=== PATIENT | female | born 1990 | race Caucasian/White ===

== ENCOUNTER 2016-12-02 05:28 | Inpatient (IN) | payer BC ==
[~2016-12-02] VITALS: Ht 157.5 cm; Wt 87.7 kg
[2016-12-02] VITALS (38 sets, daily range): BP systolic 110–166; BP diastolic 59–101; PULSE 88–136; TEMP 97.5–98
[2016-12-02] MEDS ORDERED: MOTRIN 800800 MG/TAB PO (06:25)
[2016-12-02] MEDS ORDERED: PERCOCET 325 MG1 TA2 PO (06:25)
[2016-12-02] MEDS ORDERED: PRENATAL (06:54)
[2016-12-02 07:43] LABS: BASO % 0.4 % (0.0-2.0); EOS % 0.5 % (0-4.0); GRAN # 5.8 (1.4-6.5); GRAN % 73.8 % (42.2-75.2); HEMOGLOBIN 12.1 g/dl (12.5-16.0); LYMPH # 1.2 (1.2-3.4); LYMPH % 15.6 % (20.0-51.0); MEAN CELL VOLUME 83 fl (80.0-100.0); MEAN CORPUSCULAR HEMOGLOBIN 29 pg (27.0-31.0); MEAN CORPUSCULAR HGB CONC 35 g/dl (33.0-37.0); MEAN PLATELET VOLUME 12.5 fl (7.4-10.4); MONO # 0.7 (0.1-0.6); MONO % 8.9 % (1.7-9.3); PLATELET COUNT 147 K/mm3 (130-400); RED BLOOD COUNT 4.19 M/mm3 (4.10-5.30); REDCELL DISTRIBUTION WIDTH-CV 13.7 % (11.5-14.5); WHITE BLOOD COUNT 7.9 K/mm3 (4.8-10.8)
[2016-12-02 08:00] LABS: PH 6 (5-8); SQUAMOUS EPITHELIAL 0-2 /hpf; URINE APPEARANCE Clear; URINE BACTERIA None Seen /hpf; URINE BILIRUBIN Negative (NEGATIVE); URINE BLOOD 1+ (NEGATIVE); URINE COLOR Yellow; URINE GLUCOSE Negative (NEGATIVE); URINE KETONE Trace (NEGATIVE); URINE RBC 20-50 /hpf; URINE UROBILINOGEN Negative (NEGATIVE)
[2016-12-02 08:07] LABS: HEMATOCRIT 34.9 % (37.0-47.0)
[2016-12-02 08:11] LABS: ALBUMIN 3.4 gm/dL (3.5-5.0); BILIRUBIN,TOTAL 0.5 mg/dL (0.0-1.0); CALCIUM 8.5 mg/dL (8.4-10.2); CREATININE, serum 0.5 mg/dL (0.52-1.25); POTASSIUM 3.5 mmol/L (3.4-5.0); TOTAL PROTEIN 6.7 gm/dL (6.4-8.2)
[2016-12-03 00:07] VITALS: BP 123/71; PULSE 92; TEMP 97.7
[2016-12-03 04:30] VITALS: BP 134/86; PULSE 98; TEMP 97.6
[2016-12-03 08:00] VITALS: BP 129/78; PULSE 113; TEMP 97.9
[2016-12-03 12:00] VITALS: BP 120/74; PULSE 94; TEMP 98.1
[2016-12-03] MEDS ORDERED: PERCOCET 325 MG1 TA2 PO (12:21)
[2016-12-03] MEDS ORDERED: IBU800 M1 PO (12:21)
[2016-12-03 16:00] VITALS: BP 133/87; PULSE 103; TEMP 97.6
[2016-12-03 18:45] VITALS: BP 126/72; PULSE 89; TEMP 97.8
[2016-12-04 08:00] VITALS: BP 128/80; PULSE 82; TEMP 97.7
== END 2016-12-04 14:50 | disposition home or self-care (01) | DRG 775 ==
LOC: LDRO 05:28 → LDR 05:53 → OB 05:53
PROVIDERS: Obstetrics & Gynecology
PROC: 10E0XZZ Delivery of Products of Conception, External Approach (ICD-10-PCS; principal; 2016-12-02)
PROC: 0KQM0ZZ Repair Perineum Muscle, Open Approach (ICD-10-PCS; 2016-12-02)
DX: O35.8XX0 Maternal care for other (suspected) fetal abnormality and damage, not applicable or unspecified (principal); O70.1 Second degree perineal laceration during delivery; Z3A.39 39 weeks gestation of pregnancy; Z37.0 Single live birth
CPT/HCPCS: J2590; J7120

== ENCOUNTER → 2017-02-05 | Outpatient (CLI) | payer BC ==
[~2017-02-05] MED LIST: IBU800 M1 PO; MOTRIN 800800 MG/TAB PO; PERCOCET 325 MG1 TA2 PO; PRENATAL
== END ==
LOC: MC.RAD 14:03
DX: N60.02 Solitary cyst of left breast (principal); N63 Unspecified lump in breast

== ENCOUNTER 2019-06-23 17:39 | Outpatient (CLI) | payer BC ==
[~2019-06-23] VITALS: Ht 157.5 cm; Wt 91.4 kg
--- NOTE | 2019-06-23 17:45 | NUR ---
Pt arrives on unit ambulatory with spouse. States fall directly to abdomen at 1640 while chasing dog and toddler. Denies LOF, vaginal bleeding, regular ctx and reports movement. EFM and toco applied. VSS. Admission assessment complete. Dr. Velazquez notified. See physician notification. Pt updated on POC. Safety reviewed. Oriented to room. Bed locked in low position call light within reach. No questions or concerns at this time.
[2019-06-23] MEDS ORDERED: LEVOXYL0.05 MG PO (17:46)
[2019-06-23 18:25] VITALS: BP 123/85; PULSE 97
--- NOTE | 2019-06-23 18:25 | NUR ---
Watching TV, spouse attentive at bedside. Pt reports generalized "ache" on R side of abdomen, no redness or bruising noted. Denies need for ice or heat to that area at this time.
[2019-06-23 19:00] VITALS: BP 121/78; PULSE 95
[2019-06-23 19:30] VITALS: BP 123/72; PULSE 94
--- NOTE | 2019-06-23 19:45 | NUR ---
Up to bathroom, denies vaginal bleeding or loss of fluid.
[2019-06-23 19:55] VITALS: BP 127/76; PULSE 92
[2019-06-23 20:50] VITALS: BP 127/75; PULSE 93
[2019-06-23 21:45] VITALS: BP 134/86; PULSE 109
--- NOTE | 2019-06-23 22:00 | NUR ---
Discharge instructions reviewed with pt and spouse. Questions invited and answred. Ambulatory off unit.
== END 2019-06-23 22:05 | disposition home or self-care (01) ==
LOC: LDRO 17:39 → LDR 17:48 → LDRO 22:05
DX: O9A.213 Injury, poisoning and certain other consequences of external causes complicating pregnancy, third trimester (principal); Z3A.35 35 weeks gestation of pregnancy
CPT/HCPCS: OP

== ENCOUNTER 2019-06-30 10:04 | Inpatient (IN) | payer BC ==
[~2019-06-30] VITALS: Ht 157.5 cm; Wt 95.7 kg
[~2019-06-30 10:04] MED LIST changes: +LEVOXYL0.05 MG PO
[2019-07-16] VITALS (45 sets, daily range): BP systolic 103–141; BP diastolic 62–98; PULSE 83–123; TEMP 97.7–98.4
--- NOTE | 2019-07-16 07:20 | NUR ---
Pt here for scheduled induction of labor. Pt to room LDR 3 and to EFM. IV started to left hand x 1 attempt. Blood drawn from site and then LR infusing without difficulty. Assessment complete and consents signed. Pt denies any vaginal bleeding, leaking of fluid or contractions. 39.0 weeks gestation and GBS negative. SVE: /-3. 0800:Pitocin started at 2mu.
[2019-07-16 08:54] LABS: BASO % 0.3 % (0.0-2.0); EOS # 0.1 (0.0-0.7); EOS % 1.3 % (0-4.0); GRAN % 71.7 % (42.2-75.2); LYMPH # 1.2 (1.2-3.4); LYMPH % 17.5 % (20.0-51.0); MEAN CELL VOLUME 78 fl (80.0-100.0); MEAN CORPUSCULAR HEMOGLOBIN 26 pg (27.0-31.0); MEAN CORPUSCULAR HGB CONC 33 g/dl (33.0-37.0); MEAN PLATELET VOLUME 12.2 fl (7.4-10.4); MONO # 0.6 (0.1-0.6); MONO % 8.8 % (1.7-9.3); PLATELET COUNT 199 K/mm3 (130-400); RED BLOOD COUNT 4.24 M/mm3 (4.10-5.30); REDCELL DISTRIBUTION WIDTH-CV 14.1 % (11.5-14.5)
--- NOTE | 2019-07-16 10:30 | NUR ---
Dr Velez and at bedside. SVE:3-/-2. AROM per physician, clear fluid noted. Pads changed and pt repositioned. Denies epidural at this time but will notify nurse when she desires one.
--- NOTE | 2019-07-16 11:10 | NUR ---
Pt requesting epidural. Donny EXTENSION COURSE COORDINATOR here and notified. IVF bolus started. 1118:Pt repositioned to sitting up position. Epidural placed, test dose at 1126. Pt tolerated well. See anesthesia notes.
--- NOTE | 2019-07-16 14:55 | NUR ---
Prolonged deceleration noted followed by recurrent variable decelerations. SVE: 8/80/-2. Pitocin off and O2 on at 10L per mask. Pt repositioned to left lateral to right lateral. 1504:Dr Velez called and notified. Physician looking at FHR monitor from the office at this time. Orders to continue to monitor, pitocin to remain off at this time.
--- NOTE | 2019-07-16 15:55 | NUR ---
Dr Velez here. sVE: /-1. scalp electrode placed at this time. Positive scalp stimulation noted. Recurrent variable, early and intermittent late decelerations noted. Pitocin remains off and O2 on at 10l per mask. Physician reviews strip and continues to monitor at this time.
--- NOTE | 2019-07-16 16:48 | NUR ---
Pt calls out and feeling lots of rectal pressure. SVE: complete +2. After exam prolonged deceleration noted. FHR decreasing to 80-90bpm. Dr Velez on OB floor and notified. 1650:Physician at bedside. SVE:complete +2. Pt prepped for delivery. Pt pushes 4 times with one contraction and at 1659 of infants head. Shoulder dystocia noted. Danuta performed then suprapubic pressure done with no progress. Dr Velez delivers the posterior arm and delivery of infants body at 1700. 30 seconds noted between head and shoulders. Cord clamped and taken to nursery and under Marifer RN care. 2nd degree laceration repaired by physician. 1701:Spontaneous delivery of placenta. LR with pitocin infusing at 333ml/hr. Fundus firm, bleeding WNL. New pads and ice pack in place. Pt sitting up doing skin to skin with .
[2019-07-17 04:00] VITALS: BP 119/85; PULSE 95; TEMP 98.4
[2019-07-17 07:10] VITALS: BP 123/78; PULSE 106; TEMP 97.9
[2019-07-17] MEDS ORDERED: IBU800 M1 PO (08:47)
--- NOTE | 2019-07-17 10:33 | NUR ---
Initial visit; Parents thanked Voting Machine Repairer for offering congratulations and God's blessings for the of their son. Voting Machine Repairer thanked Family for choosing [facility].
[2019-07-17 11:15] VITALS: BP 116/76; PULSE 104; TEMP 97.7
[2019-07-17 15:45] VITALS: BP 122/78; PULSE 105; TEMP 97.6
[2019-07-17 20:30] VITALS: BP 135/85; PULSE 99; TEMP 97.8
[2019-07-18 07:30] VITALS: BP 127/81; PULSE 83; TEMP 97.9
--- NOTE | 2019-07-18 11:15 | NUR ---
Patient discharge instructions reviewed with her and . script for motrin sent to her pharmacy. Discharge teaching verbally reviewed and patient verbalizes understanding. Patient, and infant escorted out to private vehicle.
== END 2019-07-18 11:30 | disposition home or self-care (01) | DRG 807 ==
LOC: EDSTATUS 10:04 → LDRO 11:21 → LDR 07-16 07:02 → OB 07-16 07:02
PROVIDERS: ADMIT Student in an Organized Health Care Education/Training Program
PROC: 10E0XZZ Delivery of Products of Conception, External Approach (ICD-10-PCS; principal; 2019-07-16)
PROC: 0KQM0ZZ Repair Perineum Muscle, Open Approach (ICD-10-PCS; 2019-07-16)
PROC: 3E033VJ Introduction of Other Hormone into Peripheral Vein, Percutaneous Approach (ICD-10-PCS; 2019-07-16)
PROC: 10907ZC Drainage of Amniotic Fluid, Therapeutic from Products of Conception, Via Natural or Artificial Opening (ICD-10-PCS; 2019-07-16)
DX: O99.284 Endocrine, nutritional and metabolic diseases complicating childbirth (principal); Z37.0 Single live birth; E03.9 Hypothyroidism, unspecified; Z3A.39 39 weeks gestation of pregnancy; O99.02 Anemia complicating childbirth; D64.9 Anemia, unspecified; O99.344 Other mental disorders complicating childbirth; O99.214 Obesity complicating childbirth; E66.9 Obesity, unspecified; O76 Abnormality in fetal heart rate and rhythm complicating labor and delivery; F32.9 Major depressive disorder, single episode, unspecified; O66.0 Obstructed labor due to shoulder dystocia; O70.1 Second degree perineal laceration during delivery
CPT/HCPCS: J2590; J7120